=== PATIENT | female | born 1975 | race Hispanic/Latino ===

== ENCOUNTER 2018-04-01 01:44 | Emergency (ER) | payer OTHER ==
[2018-04-01] MEDS ORDERED: METHYLPREDNISOLONE SOD SUCC 40MG/ML 1ML ONE (02:37)
[2018-04-01] MEDS ORDERED: IPRATROPIUM/ALBUTEROL SULFATE 3 ML SOLUTION IH ONE (02:42)
[2018-04-01 03:44] LABS: BASOPHILS % (AUTO) 0.6 % (0.0-5.0); EOSINOPHILS % (AUTO) 2.9 % (0.0-8.0); HEMATOCRIT 43.7 % (36-48); LYMPHOCYTES % (AUTO) 43.6 % (21.0-51.0); MEAN CORPUSCULAR HEMOGLOBIN 30.8 pg (27.0-33.0); MEAN CORPUSCULAR HGB CONC 34.5 g/dL (32.0-36.0); MEAN CORPUSCULAR VOLUME 89.5 fL (79-99); MONOCYTES % (AUTO) 10.1 % (3.0-13.0); NEUTROPHILS % (AUTO) 42.8 % (40.0-77.0); PLATELET COUNT (AUTO) 233 K/uL (130-400); RED BLOOD CELL COUNT(AUTO) 4.89 MIL/uL (4.00-5.50); RED CELL DISTRIBUTION WIDTH 13.7 % (11.0-15.5); WHITE BLOOD COUNT (AUTO) 9.5 K/uL (4.8-10.8)
[2018-04-01 03:47] LABS: APPEARANCE,URINE Clear (CLEAR); BILIRUBIN,URINE Negative (NEGATIVE); COLOR,URINE Yellow (YELLOW); GLUCOSE, URINE (UA) Negative (NEGATIVE); KETONES,URINE Negative (NEGATIVE); LEUKOCYTE ESTERASE ,URINE Negative (NEGATIVE); NITRATE,URINE Negative (NEGATIVE); OCCULT BLOOD,URINE Negative (NEGATIVE); PH,URINE 6.5 (5.0-8.0); PROTEIN,URINE Negative (NEGATIVE)
[2018-04-01 03:54] LABS: AMPHET/METH SCREEN,URINE NEGATIVE (NEGATIVE); BARBITURATE SCREEN, URINE NEGATIVE (NEGATIVE); BENZODIAZEPINES SCREEN,URINE NEGATIVE (NEGATIVE); CANNABINOID SCREEN,URINE NEGATIVE (NEGATIVE); COCAINE SCREEN,URINE NEGATIVE (NEGATIVE); OPIATE SCREEN,URINE NEGATIVE (NEGATIVE); PHENCYCLIDINE SCREEN,URINE NEGATIVE (NEGATIVE)
[2018-04-01 03:57] LABS: CREATININE 0.8 mg/dL (0.5-1.5); POTASSIUM 3.7 mmol/L (3.5-5.1)
[2018-04-01 04:02] LABS: ALBUMIN 3.5 g/dL (3.5-5.0); BILIRUBIN,TOTAL 0.3 mg/dL (0.2-1.0); TOTAL PROTEIN, SERUM 7.5 g/dL (6.0-8.3)
== END 2018-04-01 05:26 | disposition home or self-care (01) ==
LOC: EDH 01:44
DX: J45.991 Cough variant asthma (principal); J70.5 Respiratory conditions due to smoke inhalation; Z88.0 Allergy status to penicillin
CPT/HCPCS: 36415; 71046; 80053; 80305; 81003; 81025; 82375 ×2; 82550; 84484; 85025; 93005; 94640; 96374; 99285; J2920

== ENCOUNTER 2022-01-01 21:06 | Emergency (ER) | payer BC ==
[~2022-01-01] VITALS: Ht 160 cm; Wt 77.1 kg
[2022-01-01 21:40] VITALS: BP 130/78
[2022-01-01] MEDS ORDERED: DIPH50 PO (22:11)
[2022-01-01] MEDS ORDERED: PRED20TA3 PO (22:11)
== END 2022-01-01 22:27 | disposition home or self-care (01) ==
LOC: EDH 21:06
DX: L25.9 Unspecified contact dermatitis, unspecified cause (principal); Z90.49 Acquired absence of other specified parts of digestive tract

== ENCOUNTER 2023-07-11 15:45 | Emergency (ER) | payer BC ==
[~2023-07-11] VITALS: Ht 157.5 cm; Wt 78.5 kg
[~2023-07-11 15:45] MED LIST: DIPH50 PO; PRED20TA3 PO
[2023-07-11 16:24] VITALS: BP 139/94; PULSE 72; RESP 20
[2023-07-11 16:49] LABS: ADD UA MICROSCOPIC YES; APPEARANCE,URINE CLEAR (CLEAR); BILIRUBIN,URINE NEGATIVE (NEGATIVE); COLOR,URINE YELLOW (YELLOW); GLUCOSE, URINE (UA) NEGATIVE (NEGATIVE); KETONES,URINE NEGATIVE (NEGATIVE); LEUKOCYTE ESTERASE ,URINE NEGATIVE Leu/uL (NEGATIVE); NITRATE,URINE NEGATIVE (NEGATIVE); OCCULT BLOOD,URINE MODERATE (NEGATIVE); PROTEIN,URINE 10 mg/dL (NEGATIVE); UROBILINOGEN,URINE 0.2 mg/dL (0.2-1.0)
[2023-07-11 16:52] LABS: MUCUS,URINE FEW LPF (None Seen); RBC,URINE 26-50 /HPF (0-1); SQUAMOUS EPITHELIAL CELL,UR RARE /HPF (0-2)
[2023-07-11] MEDS ORDERED: CYCL-309 PO (18:29)
[2023-07-11] MEDS ORDERED: IBUP-2077 PO (18:29)
[2023-07-11] MEDS ORDERED: KETOROLAC 30MG VIAL (30MG/ML) IM ONE (18:30)
== END 2023-07-11 18:46 | disposition home or self-care (01) ==
LOC: EDH 15:45
DX: M54.50 Low back pain, unspecified (principal); Z88.0 Allergy status to penicillin; Z90.49 Acquired absence of other specified parts of digestive tract
CPT/HCPCS: 99284; 81001; 96372; J1885